=== PATIENT | male | born 1965 | race Hispanic/Latino ===

== ENCOUNTER 2018-02-13 09:17 | Outpatient (CLI) | payer OTHER ==
--- NOTE | 2018-02-13 14:20 | Ultrasound Report ---
Complete abdominal ultrasound: Abdominal pain. Imaging of the liver and spleen are unremarkable with normal echogenicity and size. The body and head of the pancreas are identified but the tail is obscured. The gallbladder is normally distended and contains echogenicities with shadowing. The gallbladder wall was not thickened and there is no pericholecystic fluid. The CBD diameter is 4 mm. The right kidney has a length of 12.7 cm with normal thickness and echogenicity. In the superior pole there is a circumscribed 2.3 cm anechoic mass with a short segment of calcification in the wall. A similar anechoic masses noted in the inferior pole measuring 18 mm. The left renal length is 13 cm. The parenchyma is slightly more echogenic than on the right side. The diameter of the proximal abdominal aorta is 2.1 cm, mid aorta is 1.7 cm, distal aorta is 1.8 cm, right iliac artery 1.2 cm and the left iliac artery 1.2 cm in diameter. The IVC is in its normal position with normal size. Impression: 1. Cholelithiasis. 2. Right renal cysts.
== END 2018-02-13 09:18 | disposition home or self-care (01) ==
LOC: SPVWC 09:17
PROVIDERS: ATTEND Internal Medicine Gastroenterology
DX: K80.20 Calculus of gallbladder without cholecystitis without obstruction (principal); N28.1 Cyst of kidney, acquired; K30 Functional dyspepsia
CPT/HCPCS: 76700

== ENCOUNTER 2019-01-01 09:34 | Outpatient (CLI) | payer OTHER ==
--- NOTE | 2019-01-01 11:28 | Fluoroscopy Report ---
CHEST FLUOROSCOPY History: Shortness of breath, sniff test. Findings: No comparison. 2 view chest x-ray demonstrates CABG changes and an elevated left hemidiaphragm by 2 rib levels compared to the right side. 21 fluoroscopic images were saved during this exam. Normal inspiration and expiration were observed under fluoroscopy in the AP and lateral projections. There is normal excursion of the right hemidiaphragm. There is poor or blunted excursion of the left hemidiaphragm. A positive sniff test was confirmed. There is normal excursion of the right hemidiaphragm. There is paradoxical motion of the left hemidiaphragm. Impression: Positive sniff test. 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
== END 2019-01-01 09:35 | disposition home or self-care (01) ==
LOC: FLUORO 09:34
PROVIDERS: ATTEND Internal Medicine Critical Care Medicine
DX: J98.9 Respiratory disorder, unspecified (principal); R06.02 Shortness of breath; I25.10 Atherosclerotic heart disease of native coronary artery without angina pectoris; Z95.1 Presence of aortocoronary bypass graft; Z95.5 Presence of coronary angioplasty implant and graft; Z79.899 Other long term (current) drug therapy; Z88.8 Allergy status to other drugs, medicaments and biological substances
CPT/HCPCS: 76000